=== PATIENT | male | born 1990 | race American Indian/Alaskan Native ===

== ENCOUNTER 2016-08-13 17:23 | Emergency (ER) | payer MEDICAID, OTHER ==
[2016-08-13 17:23] VITALS: BMI 24.3
[2016-08-13 17:29] VITALS: BP 147/83; TEMP 98.9
--- NOTE | 2016-08-13 17:37 | ED PDOC ---
Arrival/HPI - General Chief Complaint: Abnormal Skin Integrity Time Seen by Provider: 08/13/16 17:32 Historian: Patient - History of Present Illness Narrative History of Present Illness (Text): 08/13/16 17:33 This 26 yo male presents to this ED c/o left hand laceration x hours. Patient stated he accidentally cut his left hand dorsal aspect at work with a broken tile. Patient had Tetanus shot x 6 months ago. Patient has FROM of hands and fingers. Denies other complains. Time/Duration: 1-3 hours Context: Work Past Medical History - Provider Review Nursing Documentation Reviewed: Yes - Infectious Disease Hx of Infectious Diseases: None - Psychiatric Hx Psychophysiologic Disorder: No Hx Substance Use: No - Anesthesia Hx Anesthesia: No - Suicidal Assessment Feels Threatened In Home Enviroment: No Family/Social History - Physician Review Nursing Documentation Reviewed: Yes Family/Social History: No Known Family HX Smoking Status: Current Some Days Smoker Hx Alcohol Use: Yes Hx Substance Use: No Allergies/Home Meds Allergies/Adverse Reactions: Allergies No Known Allergies Allergy (Verified 08/13/16 17:26) Review of Systems - Review of Systems Constitutional: Normal. absent: Fatigue, Weight Change, Fevers Eyes: Normal ENT: Normal Respiratory: Normal Cardiovascular: Normal Gastrointestinal: Normal Genitourinary Male: Normal Musculoskeletal: Normal Skin: Laceration (left hand laceration) Neurological: Normal Endocrine: Normal Hemo/Lymphatic: Normal Psychiatric: Normal Physical Exam Vital Signs Temp Pulse Resp BP Pulse Ox 08/13/16 17:45 98.9 F 91 H 16 99 08/13/16 17:26 98.9 F 93 H 16 147/83 98 Temperature: Afebrile Blood Pressure: Normal Pulse: Regular Respiratory Rate: Normal Appearance: Positive for: Well-Appearing, Non-Toxic, Comfortable Pain Distress: None Mental Status: Positive for: Alert and Oriented X 3 - Systems Exam Head: Present: Atraumatic, Normocephalic Pupils: Present: PERRL Extroacular Muscles: Present: EOMI Conjunctiva: Present: Normal Mouth: Present: Moist Mucous Membranes Neck: Present: Normal Range of Motion Upper Extremity: Present: Normal ROM, NORMAL PULSES, Neurovascularly Intact, Capillary Refill < 2s, Other ((+) left hand laceration, dorsal aspect, approx. 2.7 cm. No deep structures visualized.). No: Cyanosis, Edema Neurological: Present: GCS=15, CN II-XII Intact, Speech Normal, Motor Func Grossly Intact, Normal Sensory Function, Normal Cerebellar Funct, Gait Normal Skin: Present: Warm, Dry, Normal Color. No: Rashes Psychiatric: Present: Alert, Oriented x 3 Medical Decision Making ED Course and Treatment: 08/13/16 18:06 Re-evaluation. Patient feels better. Discussed results and plan with patient who expresses understanding. All questions answered and there is agreement with the plan to discharge home with instructions. Patient stable for discharge. Return if symptoms persist or worsen. Re-evaluation Time: 18:06 Reassessment Condition: Re-examined, Improved - Procedure PROCEDURE NOTE (Text): 08/13/16 18:06 PROCEDURE: LACERATION REPAIR Performed by the emergency provider Location: left hand Length: 2.7 cm Description: clean wound edges , no foreign bodies Distal CMS: Normal. No deficits. Neurovascularly intact. Anesthesia: Lidocaine 1 % with Epi, approx. 1 cc Preparation: The wound was cleaned with NS and Betadyne. The area was prepped and draped in the usual sterile fashion. Exploration: The wound was explored and no foreign bodies were found Procedure: The wound was closed with Monocryl. 4-0, interrupted. There was good approximation. In total, 5 sutures were used. Post-Procedure: Good closure and hemostasis. The patient tolerated the procedure well and there were no complications. CSM remains intact. Post procedure dressing applied. Disposition/Present on Arrival - Present on Arrival Any Indicators Present on Arrival: No History of DVT/PE: No History of Uncontrolled Diabetes: No Urinary Catheter: No History of Decub. Ulcer: No History Surgical Site Infection Following: None - Disposition Have Diagnosis and Disposition been Completed?: Yes Diagnosis: Laceration of hand Disposition: HOME/ ROUTINE Disposition Time: 18:09 Patient Plan: Discharge Patient Problems: Current Active Problems Problem Status Onset Laceration of hand Acute Condition: GOOD Discharge Instructions (ExitCare): Laceration (ED), Care For Your Absorbable Stitches (ED) Additional Instructions: Call private doctor for follow up visit and wound check in 2-3 days. Keep wound clean and dry for 2 days, then clean wound with soap and water daily. Take medication as instructed. Return to emergency if symptoms worsen. Sutures are absorbable, so they do not need to be removed, they will fall off. Prescriptions: Cephalexin [cephalexin] 500 mg PO QID #16 cap Referrals: [facility] [Outside] - Follow up with primary [facility] [Outside] - Follow up with primary
[2016-08-13 18:21] VITALS: PULSE 80; RESP 17; O2SAT 98
== END 2016-08-13 18:21 | disposition home or self-care (01) ==
LOC: ED 17:23
DX: S61.412A Laceration without foreign body of left hand, initial encounter (principal); W45.8XXA Other foreign body or object entering through skin, initial encounter; Y93.89 Activity, other specified; Y92.89 Other specified places as the place of occurrence of the external cause; Y99.8 Other external cause status

== ENCOUNTER 2016-09-15 20:13 | Emergency (ER) | payer OTHER ==
[2016-09-15 20:35] VITALS: BMI 23.7
[2016-09-15 20:38] VITALS: RESP 18; TEMP 98.7; O2SAT 99
--- NOTE | 2016-09-15 22:16 | ED PDOC ---
Arrival/HPI - General Chief Complaint: Dental Pain Time Seen by Provider: 09/15/16 21:16 Historian: Patient - History of Present Illness Narrative History of Present Illness (Text): 09/15/16 22:15 26yr old male presents today with 1 day history of left upper dental pain and swelling. denies trauma or injury. no fever/chills. no cp or sob. denies trismus or drooling. no medications taken for pain. no other complaints. Time/Duration: Other (1 day) Symptom Onset: Sudden Symptom Course: Unchanged Quality: Aching Severity Level: 4 Past Medical History - Provider Review Nursing Documentation Reviewed: Yes - Travel History Have you recently traveled outside [place] w/in the past 3 mons?: Yes - Infectious Disease Hx of Infectious Diseases: None - Tetanus Immunization Tetanus Immunization: Unknown - Psychiatric Hx Psychophysiologic Disorder: No Hx Substance Use: No - Anesthesia Hx Anesthesia: No - Suicidal Assessment Feels Threatened In Home Enviroment: No Family/Social History - Physician Review Nursing Documentation Reviewed: Yes Family/Social History: Unknown Family HX Smoking Status: Former Smoker Hx Alcohol Use: Yes Frequency of alcohol use: Socially Hx Substance Use: No Allergies/Home Meds Allergies/Adverse Reactions: Allergies No Known Allergies Allergy (Verified 08/13/16 17:26) Review of Systems - Review of Systems Constitutional: absent: Fatigue, Fevers ENT: Other (left upper dental pain). absent: Sore Throat, Sinus Congestion Respiratory: absent: SOB, Cough Cardiovascular: absent: Chest Pain, Palpitations Gastrointestinal: absent: Abdominal Pain, Nausea, Vomiting Genitourinary Male: absent: Dysuria Musculoskeletal: absent: Arthralgias Skin: absent: Rash, Pruritis Neurological: absent: Headache, Dizziness Psychiatric: absent: Anxiety, Depression Physical Exam Vital Signs Reviewed: Yes Vital Signs Temp Pulse Resp BP Pulse Ox 09/15/16 20:37 98.7 F 81 18 154/93 H 99 Temperature: Afebrile Blood Pressure: Hypertensive Pulse: Regular Respiratory Rate: Normal Appearance: Positive for: Well-Appearing, Non-Toxic, Comfortable Pain Distress: None Mental Status: Positive for: Alert and Oriented X 3 - Systems Exam Head: Present: Atraumatic, Swelling (+ edema to left cheek) Conjunctiva: Present: Normal Ears: Present: Normal, NORMAL TM Mouth: Present: Moist Mucous Membranes, Normal Lips, Normal Tounge. No: Drooling, Trismus, Normal Teeth (dental caries; + left upper molar tenderness; + swelling left upper gingiva. ) Pharnyx: Present: Normal. No: ERYTHEMA, EXUDATE Neck: Present: Normal Range of Motion, Trachea Midline. No: Meningeal Signs, Lymphadenopathy Respiratory/Chest: Present: Clear to Auscultation, Good Air Exchange. No: Respiratory Distress, Accessory Muscle Use Cardiovascular: Present: Regular Rate and Rhythm, Normal S1, S2. No: Murmurs Neurological: Present: GCS=15 Skin: Present: Warm, Dry, Normal Color. No: Rashes Psychiatric: Present: Alert, Oriented x 3 Medical Decision Making ED Course and Treatment: 09/15/16 23:17 Patient is nontoxic well-appearing in no distress with stable vital signs No trismus or drooling, moist mucous membranes Toradol, clindamycin I advised follow-up with the dentist within the next 2 days. I advised immediate return is symptoms worsen persist or if new concerning symptoms develop Patient verbalizes understanding of discharge instructions and need for immediate followup. Patient verbalizes understanding of discharge instructions and need for immediate followup. Impression: Toothache Motrin every 6 hours as needed for pain Clindamycin 1 tablet 3 times daily x 10 days Follow-up with the dentist within the next 2 days Follow up with the primary care physician within the next 2 days. Return immediately if symptoms worsen persist or if new concerning symptoms develop. - Medication Orders Current Medication Orders: Discontinued Medications Clindamycin HCl (Cleocin) 300 mg PO STAT STA PRN Reason: Protocol Stop: 09/15/16 21:27 Last Admin: 09/15/16 21:44 Dose: 300 mg Ketorolac Tromethamine (Toradol) 60 mg IM STAT STA Stop: 09/15/16 21:17 Last Admin: 09/15/16 21:44 Dose: 60 mg Disposition/Present on Arrival - Present on Arrival Any Indicators Present on Arrival: No History of DVT/PE: No History of Uncontrolled Diabetes: No Urinary Catheter: No History of Decub. Ulcer: No History Surgical Site Infection Following: None - Disposition Have Diagnosis and Disposition been Completed?: Yes Diagnosis: Dental abscess Disposition: HOME/ ROUTINE Disposition Time: 22:13 Patient Plan: Discharge Condition: GOOD Discharge Instructions (ExitCare): Dental Abscess (ED) Additional Instructions: Motrin every 6 hours as needed for pain Clindamycin 1 tablet 3 times daily x 10 days Follow-up with the dentist within the next 2 days Follow up with the primary care physician within the next 2 days. Return immediately if symptoms worsen persist or if new concerning symptoms develop Prescriptions: Clindamycin [Cleocin] 150 mg PO TID #21 cap Ibuprofen [Motrin] 600 mg PO Q6H PRN #20 tab PRN Reason: pain/fever reduction Referrals: Min Hernandez DMD [Non-Staff] - Follow up with primary [facility] [place] [Outside] - Follow up with primary Pavel Morales MD [Staff Provider] - Follow up with primary Forms: WORK NOTE
[2016-09-15 22:59] VITALS: BP 147/85; PULSE 89
== END 2016-09-15 22:59 | disposition home or self-care (01) ==
LOC: ED 20:13
DX: K04.7 Periapical abscess without sinus (principal)
CPT/HCPCS: 96372; 99282; J1885

== ENCOUNTER 2016-09-16 14:55 | Emergency (ER) | payer OTHER ==
[2016-09-16 14:55] VITALS: BMI 23.7
[2016-09-16 15:21] VITALS: BP 128/90; PULSE 80; RESP 18; TEMP 98.8
--- NOTE | 2016-09-16 15:36 | ED PDOC ---
Arrival/HPI - General Chief Complaint: Dental Pain Time Seen by Provider: 09/16/16 15:27 Historian: Patient - History of Present Illness Narrative History of Present Illness (Text): 09/16/16 15:36 This 26 yo male presents to this ED c/o left upper molar pain for "few days". Patient was seen in this ED yesterday Past Medical History - Infectious Disease Hx of Infectious Diseases: None - Tetanus Immunization Tetanus Immunization: Unknown - Cardiac Hx Cardiac Disorders: No - Pulmonary Hx Respiratory Disorders: No - Neurological Hx Neurological Disorder: No - HEENT Hx HEENT Disorder: No - Renal Hx Renal Disorder: No - Endocrine/Metabolic Hx Endocrine Disorders: No - Hematological/Oncological Hx Blood Disorders: No - Integumentary Hx Dermatological Disorder: No - Musculoskeletal/Rheumatological Hx Musculoskeletal Disorders: No - Gastrointestinal Hx Gastrointestinal Disorders: No - Genitourinary/Gynecological Hx Genitourinary Disorders: No - Psychiatric Hx Psychophysiologic Disorder: No Hx Substance Use: No - Anesthesia Hx Anesthesia: No - Suicidal Assessment Feels Threatened In Home Enviroment: No Family/Social History Smoking Status: Former Smoker Hx Alcohol Use: Yes Hx Substance Use: No Allergies/Home Meds Allergies/Adverse Reactions: Allergies No Known Allergies Allergy (Verified 08/13/16 17:26) Physical Exam Vital Signs Temp Pulse Resp BP Pulse Ox 09/16/16 15:17 98.8 F 80 18 128/90 98 Medical Decision Making ED Course and Treatment: 09/16/16 16:59 This Re-evaluation Time: 16:59 Reassessment Condition: Re-examined, Improved - Medication Orders Current Medication Orders: Discontinued Medications Bupivacaine HCl (Marcaine 0.5%) 2 ml IJ STAT STA Stop: 09/16/16 15:39 Clindamycin HCl (Cleocin) 300 mg PO STAT STA PRN Reason: Protocol Stop: 09/16/16 16:23 Last Admin: 09/16/16 16:41 Dose: 300 mg Lidocaine HCl (Lidocaine 1% (20ml)) Confirm Administered Dose 20 ml .ROUTE .STK- MED ONE Stop: 09/16/16 15:41 Disposition/Present on Arrival - Present on Arrival Any Indicators Present on Arrival: No History of DVT/PE: No History of Uncontrolled Diabetes: No Urinary Catheter: No History of Decub. Ulcer: No History Surgical Site Infection Following: None - Disposition Have Diagnosis and Disposition been Completed?: Yes Diagnosis: Dental abscess Disposition: HOME/ ROUTINE Disposition Time: 16:59 Patient Plan: Discharge Condition: GOOD Discharge Instructions (ExitCare): Dental Abscess (ED) Additional Instructions: Call private doctor for follow up visit in 1-2 days.. Call private dentist for revaluation. Take medication as instructed. Return to emergency if symptoms worsen. Prescriptions: Chlorhexidine 0.12% [Peridex] 15 ml PO BID #1 bottle Clindamycin [Cleocin] 300 mg PO QID #28 cap Referrals: PCP,NO [Primary Care Provider] - Follow up with primary [facility] [Outside] - Follow up with primary [facility] [Outside] - Follow up with primary Forms: WORK NOTE
[2016-09-16] MEDS ORDERED: Bupivacaine 0.5% Inj(30mL) IJ STA (15:38)
[2016-09-16] MEDS ORDERED: Lidocaine 1% Inj (20ml) ONE (15:40)
[2016-09-16 17:14] VITALS: O2SAT 99
== END 2016-09-16 17:14 | disposition home or self-care (01) ==
LOC: ED 14:55
DX: K04.7 Periapical abscess without sinus (principal)
CPT/HCPCS: 96372; 99282; J1885

== ENCOUNTER 2017-06-02 19:39 | Emergency (ER) | payer OTHER ==
[2017-06-02 19:40] VITALS: BMI 23.7
[2017-06-02 19:47] VITALS: BP 127/80; PULSE 82; RESP 16; TEMP 98.3; O2SAT 100
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
--- NOTE | 2017-06-03 09:18 | RAD ---
PROCEDURE: Right Index finger radiographs. HISTORY: injury 1 week ago COMPARISON: None. TECHNIQUE: AP radiograph of the right hand, as well as spot oblique and lateral images of index finger were obtained. FINDINGS: RIGHT INDEX FINGER: Normal right index finger, without fracture or focal lesion. Remainder of the right hand (as seen on the AP view) grossly intact. JOINTS: Normal. SOFT TISSUES: Normal. OTHER FINDINGS: None. IMPRESSION: Normal right index finger radiographs.
== END 2017-06-02 21:12 | disposition home or self-care (01) ==
LOC: ED 19:39
DX: S69.91XA Unspecified injury of right wrist, hand and finger(s), initial encounter (principal); W23.0XXA Caught, crushed, jammed, or pinched between moving objects, initial encounter; Y92.89 Other specified places as the place of occurrence of the external cause; Y99.8 Other external cause status